=== PATIENT | male | born 1950 | race Hispanic/Latino ===

== ENCOUNTER 2021-07-16 16:29 | Emergency (ER) | payer OTHER ==
--- NOTE | 2021-07-16 17:01 | RAD REPORT ---
EXAM DESCRIPTION: CT - Head C Spine Mpr Wo Con - 07/16/2021 4:40 pm CLINICAL HISTORY: Head and neck injury status post fall. Head and neck pain COMPARISON: 2013 TECHNIQUE: Computed axial tomography of the head and cervical spine was obtained. Sagittal and coronal reconstruction was performed. All CT scans are performed using dose optimization technique as appropriate and may include automated exposure control or mA/KV adjustment according to patient size. FINDINGS: An intracranial bleed is not seen. Globes are calcified. Prominent cerebral atrophy. Mild low-density areas within periventricular deep and subcortical white matter likely ischemic changes secondary to small vessel disease. The ventricles are normal in caliber. An extra-axial fluid collection is not noted.Fluid within the v isualized sinuses and mastoids is not seen A cervical fracture is not visualized. No dislocation is noted. IMPRESSION: No acute intracranial abnormality is seen. A cervical fracture is not visualized. If the patient continues to have symptoms to suggest intracra nial /spinal cord pathology then MRI would be recommended
[2021-07-16] MEDS ORDERED: LIDOCAINE 1% W/EPI 1:100,000 MDV 20 ML VIAL ONE (17:05)
[2021-07-16] MEDS ORDERED: ACETAMINOPHEN 325 MG TABLET ONE (17:20)
--- NOTE | 2021-07-16 18:20 | RAD REPORT ---
EXAM DESCRIPTION: RAD - Knee Right 3 View - 07/16/2021 4:59 pm CLINICAL HISTORY: Right knee pain status post injury FINDINGS: No fracture or dislocation is seen.
--- NOTE | 2021-07-16 18:35 | RAD REPORT ---
EXAM DESCRIPTION: RAD - Pelvis - 07/16/2021 4:59 pm CLINICAL HISTORY: Pelvic pain status post injury FINDINGS: The bones are osteoporotic. Cortical regularity involves the junction of the right femoral head and neck. I suspect this is not s ignificant. However, if the patient does have pain in this region then dedicated plain films of the r ight hip would be recommended No dislocation
--- NOTE | 2021-07-16 19:28 | RAD REPORT ---
EXAM DESCRIPTION: CT - Pelvis Wo Cont - 07/16/2021 7:09 pm CLINICAL HISTORY: Pelvic pain status post fall TECHNIQUE: Computed axial tomography of the pelvis was obtained. Coronal and sagittal reconstruction performed All CT scans are performed using dose optimization technique as appropriate and may include automated exposure control or mA/KV adjustment according to patient size. FINDINGS: The bones are osteoporotic. No fracture or dislocation is seen. Small hip joint effusions Fluid collection within the iliopsoas bilaterally. IMPRESSION: No fracture seen. If patient continues have symptoms to suggest an occult fracture MRI would be recommended Fluid collection within the iliopsoas bilaterally. Most likely this represents bursitis. Less likely abscess
--- NOTE | 2021-07-16 19:54 | ER ---
Nurse's Notes [facility] Name: Daryl Rojas Age: 71 yrs Sex: Male : 1950 Arrival Date: 07/16/2021 Time: 16:30 Bed 30 Private MD: Diagnosis: Unspecified injury of head, initial encounter;Facial Laceration;Abrasion, right knee Presentation: 07/16 16:33 Chief complaint: EMS states: "pt was sleeping in bed when he rolled out and hit his jd3 head. denies LOC. 1.5 cm laceration noted next to the left eye. pt is reported to be on blood thinners.". Coronavirus screen: At this time, the client does not indicate any symptoms associated with coronavirus-19. Ebola Screen: Patient negative for fever greater than or equal to 101.5 degrees Fahrenheit, and additional compatible Ebola Virus Disease symptoms. Initial Sepsis Screen: Does the patient meet any 2 criteria? No. Patient's initial sepsis screen is negative. Does the patient have a suspected source of infection? No. Patient's initial sepsis screen is negative. Risk Assessment: Do you want to hurt yourself or someone else? Patient reports no desire to harm self or others. Onset of symptoms was July 16, 2021. Transition of care: patient was received from another setting of care (long-term care facility), [facility]. 16:33 Method Of Arrival: EMS: [facility] jd3 16:33 Acuity: AARON 3 jd3 16:41 Care prior to arrival: None. Mechanism of Injury: Fall out of bed. Trauma event jd3 details: Injury occurred in the [facility], Injury occurred: in an institution. Injury occurred: July 16, 2021. Trauma Activation: Alert Physician: ED Physician; Name: Romaine GARCIA; Notified At: 16:40; Arrived At: 16:40 Physician: General Surgeon; Name: ; Notified At: 16:40; Arrived At: Physician: Radiology; Name: CT and Xray techs; Notified At: 16:40; Arrived At: 16:40 Physician: Respiratory; Name: ; Notified At: 16:40; Arrived At: Physician: Tato; Name: ; Notified At: 16:40; Arrived At: Historical: - Allergies: 16:38 No Known Allergies; vg1 - Home Meds: 16:38 ascorbic acid oral [Active]; Aspirin EC Oral [Active]; atorvastatin oral [Active]; vg1 carvedilol oral [Active]; Dextran [Active]; Famotidine Oral [Active]; Fluoxetine Oral [Active]; Furosemide Oral [Active]; gabapentin oral [Active]; Insulin Detemir [Active]; nitroglycerin Oral [Active]; Plavix Oral [Active]; sevelamer carbonate oral [Active]; Tramadol Oral [Active]; - Immunization history:: Adult Immunizations up to date. - Social history:: Smoking status: unknown. - Immunization history: Last tetanus immunization: unknown. Screenin:51 Abuse screen: Denies threats or abuse. Nutritional screening: No deficits noted. jd3 Tuberculosis screening: No symptoms or risk factors identified. 16:51 Fall Risk Fall in past 12 months (25 points). Ambulatory Aid- Crutches/Cane/Walker (15 jd3 pts). Mental Status- Oriented to own ability (0 pts). Total Grace Fall Scale indicates Low Risk Score (25-44 pts). Fall prevention measures have been instituted. Side Rails Up X 2 Placed close to Nursing Station Frequent Obs/Assesments occuring. Primary Survey: 16:47 NO uncontrolled hemorrhage observed. A: The patient is alert. Airway: patent, No jd3 supplemental oxygen in use on arrival. Oral cavity: clear, Trachea midline. Breathing/Chest: Respiratory pattern: regular, Respiratory effort: spontaneous, unlabored, Chest inspection: symmetrical rise and fall of the chest. Circulation: Pulses: palpable right radial artery, right dorsalis pedis artery, left radial artery and left dorsalis pedis artery. Skin color: pink, Skin temperature: warm. Disability Alert. Exposure/Environment: All clothing and personal items were removed. Forensic evidence collection is not deemed to be indicated at this time. Items placed in patient belonging bag. There is no evidence of uncontrolled external bleeding. Obvious injury(ies) are noted at this time: small laceration noted to left worship area. small skin tear noted to the right knee. A warming method has been applied: A warm blanket has been provided to the patient. 17:31 Reassessment Airway Airway Patent Breathing/Chest Respiratory pattern Regular jd3 Respiratory effort Spontaneous Unlabored Breath sounds Clear Chest inspection Symmetrical Circulation Heart tones Present Pulses Palpable Color Hodges Temperature Warm Disability Alert. Secondary Survey: 16:47 HEENT: No deficits noted. Gastrointestinal: No deficits noted. : No signs and/or jd3 symptoms were reported regarding the genitourinary system. Musculoskeletal: Circulation, motion, and sensation intact. Range of motion: intact in all extremities. Assessment: 16:43 General: Appears in no apparent distress. comfortable, Behavior is calm, cooperative, jd3 appropriate for age. Pain: Complains of pain in left worship, back of neck and posterior chest Quality of pain is described as aching, pressure. Neuro: Level of Consciousness is awake, alert, obeys commands, Oriented to person, place, situation, Reports blind. EENT: No signs and/or symptoms were reported regarding the EENT system. Cardiovascular: Denies chest pain, Capillary refill < 3 seconds Patient's skin is warm and dry. Respiratory: Airway is patent Respiratory effort is even, unlabored, Respiratory pattern is regular, symmetrical, Denies cough, shortness of breath. GI: No signs and/or symptoms were reported involving the gastrointestinal system. : No signs and/or symptoms were reported regarding the genitourinary system. Derm: Skin is intact, Skin is dry, Skin is normal, Skin temperature is warm Bruising that is on left worship small 1.5 cm laceration noted to the left worship area. bleeding controlled. small skin tear noted to right knee. Musculoskeletal: Circulation, motion, and sensation intact. Range of motion: intact in all extremities. 17:27 Reassessment: Patient appears in no apparent distress at this time. Patient and/or jd3 family updated on plan of care and expected duration. Pain level reassessed. Patient is alert, oriented x 3, equal unlabored respirations, skin warm/dry/pink. 18:44 Reassessment: Patient appears in no apparent distress at this time. Patient and/or jd3 family updated on plan of care and expected duration. Pain level reassessed. Patient is alert, oriented x 3, equal unlabored respirations, skin warm/dry/pink. resting in bed with eyes closed, even and unlabored respirations. reports still feeling sore after Tylenol, provider notified. awaiting X-ray results and disposition. Vital Signs: 16:39 BP 142 / 85; Pulse 66; Resp 17 S; Temp 97.6(O); Pulse Ox 98% on R/A; Weight 77.11 kg jd3 (R); Height 5 ft. 9 in. (175.26 cm) (R); Pain 2/10; 17:30 BP 158 / 88; Pulse 61; Resp 18 S; Pulse Ox 99% on R/A; jd3 18:44 BP 176 / 92; Pulse 65; Resp 15 S; Pulse Ox 99% on R/A; jd3 16:39 Body Mass Index 25.10 (77.11 kg, 175.26 cm) jd3 Pineda Coma Score: 16:47 Eye Response: spontaneous(4). Verbal Response: oriented(5). Motor Response: obeys jd3 commands(6). Total: 15. 17:30 Eye Response: spontaneous(4). Verbal Response: oriented(5). Motor Response: obeys jd3 commands(6). Total: 15. Trauma Score (Adult): 16:47 Eye Response: spontaneous(1); Verbal Response: oriented(1); Motor Response: obeys jd3 commands(2); Systolic BP: > 89 mm Hg(4); Respiratory Rate: 10 to 29 per min(4); Pineda Score: 15; Trauma Score: 12 17:30 Eye Response: spontaneous(1); Verbal Response: oriented(1); Motor Response: obeys jd3 commands(2); Systolic BP: > 89 mm Hg(4); Respiratory Rate: 10 to 29 per min(4); Mingus Score: 15; Trauma Score: 12 ED Course: 16:30 Patient arrived in ED. ds1 16:30 Romaine Fajardo PA is PHCP. jmm 16:30 Cindy Mathis MD is Attending Physician. jmm 16:33 Red Buck RN is Primary Nurse. jd3 16:39 Triage completed. jd3 16:39 CT Head C Spine In Process Unspecified. EDMS 16:41 Arm band placed on. jd3 16:51 Patient has correct armband on for positive identification. Placed in gown. Bed in low jd3 position. Call light in reach. Side rails up X2. Pulse ox on. NIBP on. 16:51 Patient maintains SpO2 saturation greater than 95% on room air. Thermoregulation: warm jd3 blanket given to patient. 16:59 Knee Right 3 View In Process Unspecified. EDMS 16:59 Pelvis XRAY In Process Unspecified. EDMS 17:26 Assist provider with laceration repair on left worship that was 2.5 cm. or less using jd3 sutures. Set up tray. Performed by Romaine GARCIA Patient tolerated well. 19:09 CT Pelvis wo Cont In Process Unspecified. EDMS 19:21 Primary Nurse role handed off by Red Buck RN tt3 20:18 Knee Right 3 View XRAY Sent. dc2 20:42 Pepe Malhotra, RN is Primary Nurse. mr2 Administered Medications: 17:14 Drug: Lidocaine-Epinephrine -1%: (1:100,000) 20 ml {Note: given by provider at jd3 bedside..} Volume: 20 ml; Route: Infiltration; 18:04 Follow up: Response: No adverse reaction jd3 17:26 Drug: Tylenol 650 mg Route: PO; jd3 18:03 Follow up: Response: No adverse reaction jd3 Outcome: 19:54 Discharge ordered by MD. [facility] 20:51 Patient left the ED. tt3 Signatures: Dispatcher [employer] EDSC Romaine Fajardo PA PA jmm Sanford, Demi ds1 Red Buck RN RN jd3 Garcia, Victoria, RN RN vg1 Ad Pruitt tt3 Pepe Malhotra RN RN mr2 Bryanna Souza RN RN dc2 Corrections: (The following items were deleted from the chart) 18:44 18:44 Reassessment: Patient appears in no apparent distress at this time. Patient jd3 and/or family updated on plan of care and expected duration. Pain level reassessed. Patient is alert, oriented x 3, equal unlabored respirations, skin warm/dry/pink. resting in bed with eyes closed, even and unlabored respirations. reports still feeling sore after Tylenol, provider notified. Patient states feeling better. jd3 18:46 18:44 Reassessment: Patient appears in no apparent distress at this time. Patient jd3 and/or family updated on plan of care and expected duration. Pain level reassessed. Patient is alert, oriented x 3, equal unlabored respirations, skin warm/dry/pink. resting in bed with eyes closed, even and unlabored respirations. reports still feeling sore after Tylenol, provider notified. jd3
--- NOTE | 2021-07-16 19:55 | EDPHYS ---
Physician Documentation [facility] Name: Daryl Rojas Age: 71 yrs Sex: Male : 1950 Arrival Date: 07/16/2021 Time: 16:30 Bed 30 Private MD: ED Physician Cindy Mathis HPI: 07/16 16:31 This 71 yrs old Male presents to ER via EMS with complaints of Fall Injury. [facility] 16:31 Details of fall: The patient fell from a height, off furniture, approximately 2 feet. jmm Onset: The symptoms/episode began/occurred acutely, just prior to arrival. Associated injuries: The patient sustained injury to the head. This is a 71-year-old male the presents emerged department after a mechanical fall after falling out of his bed. Denies LOC, vomiting, behavior change. Patient also complains of neck pain. Denies chest pain or abdominal pain or lower back pain.. Historical: - Allergies: 16:38 No Known Allergies; vg1 - Home Meds: 16:38 ascorbic acid oral [Active]; Aspirin EC Oral [Active]; atorvastatin oral [Active]; vg1 carvedilol oral [Active]; Dextran [Active]; Famotidine Oral [Active]; Fluoxetine Oral [Active]; Furosemide Oral [Active]; gabapentin oral [Active]; Insulin Detemir [Active]; nitroglycerin Oral [Active]; Plavix Oral [Active]; sevelamer carbonate oral [Active]; Tramadol Oral [Active]; - Immunization history:: Adult Immunizations up to date. - Social history:: Smoking status: unknown. - Immunization history: Last tetanus immunization: unknown. ROS: 16:31 Constitutional: Negative for fever, chills, and weight loss. jmm 16:31 Cardiovascular: Negative for chest pain, palpitations, and edema, Respiratory: Negative for shortness of breath, cough, wheezing, and pleuritic chest pain, Abdomen/GI: Negative for abdominal pain, nausea, vomiting, diarrhea, and constipation, Back: Negative for injury and pain, Neuro: Negative for headache, weakness, numbness, tingling, and seizure. 16:31 Neck: Positive for pain with movement. 16:31 MS/extremity: Positive for pain. 16:31 All other systems are negative. Exam: 16:31 Constitutional: This is a well developed, well nourished patient who is awake, alert, jmm and in no acute distress. 16:31 Eyes: EOMI, no conjunctival erythema appreciated ENT: Moist Mucus Membranes 16:31 Chest/axilla: Normal chest wall appearance and motion. Cardiovascular: Regular rate and rhythm. No edema appreciated Respiratory: Normal respirations, no respiratory distress appreciated Abdomen/GI: Non distended, soft 16:31 Neuro: Awake and alert, normal gait Psych: Behavior is normal, Mood is normal, Patient is cooperative and pleasant 16:31 Head/face: 1.5 similar laceration noted to the left eyebrow, mild ecchymosis noted. 16:31 Neck: ROM/movement: pain, that is mild, with any movement. 16:31 Musculoskeletal/extremity: ROM: intact in all extremities, Abrasion noted to the right anterior knee, mild tenderness to palpation, compartments are soft, full dorsalis pulse, neurovascular intact. 16:31 Skin: Appearance: Color: normal in color, 1.5 cm laceration noted to the left eyebrow. Vital Signs: 16:39 BP 142 / 85; Pulse 66; Resp 17 S; Temp 97.6(O); Pulse Ox 98% on R/A; Weight 77.11 kg jd3 (R); Height 5 ft. 9 in. (175.26 cm) (R); Pain 2/10; 17:30 BP 158 / 88; Pulse 61; Resp 18 S; Pulse Ox 99% on R/A; jd3 18:44 BP 176 / 92; Pulse 65; Resp 15 S; Pulse Ox 99% on R/A; jd3 16:39 Body Mass Index 25.10 (77.11 kg, 175.26 cm) jd3 Hartly Coma Score: 16:47 Eye Response: spontaneous(4). Verbal Response: oriented(5). Motor Response: obeys jd3 commands(6). Total: 15. 17:30 Eye Response: spontaneous(4). Verbal Response: oriented(5). Motor Response: obeys jd3 commands(6). Total: 15. Trauma Score (Adult): 16:47 Eye Response: spontaneous(1); Verbal Response: oriented(1); Motor Response: obeys jd3 commands(2); Systolic BP: > 89 mm Hg(4); Respiratory Rate: 10 to 29 per min(4); Hartly Score: 15; Trauma Score: 12 17:30 Eye Response: spontaneous(1); Verbal Response: oriented(1); Motor Response: obeys jd3 commands(2); Systolic BP: > 89 mm Hg(4); Respiratory Rate: 10 to 29 per min(4); Hartly Score: 15; Trauma Score: 12 Laceration: 17:24 Wound Repair of 1.5cm ( 0.6in ) subcutaneous laceration to outer aspect of left [facility] eyebrow. Distal neuro/vascular/tendon intact. Anesthesia: Local anesthetic administered with 1 mls of 1% lidocaine w/ Epi. Wound prep: Simple cleansing with betadine. Skin closed with 3 5-0 Prolene using simple sutures and sterile technique. Patient tolerated well. MDM: 16:31 Patient medically screened. [facility] 19:53 Data reviewed: vital signs, nurses notes. Counseling: I had a detailed discussion with [facility] the patient and/or guardian regarding: the historical points, exam findings, and any diagnostic results supporting the discharge/admit diagnosis, radiology results, the need for outpatient follow up, to return to the emergency department if symptoms worsen or persist or if there are any questions or concerns that arise at home. 07/16 16:31 Order name: CT Head C Spine; Complete Time: 17:02 [facility] 07/16 16:32 Order name: Knee Right 3 View XRAY [facility] 07/16 16:32 Order name: Pelvis XRAY; Complete Time: 18:42 [facility] 07/16 16:32 Order name: Knee Right 3 View; Complete Time: 18:23 [facility] 07/16 18:42 Order name: CT Pelvis wo Cont; Complete Time: 19:30 [facility] Administered Medications: 17:14 Drug: Lidocaine-Epinephrine -1%: (1:100,000) 20 ml {Note: given by provider at [facility] bedside..} Volume: 20 ml; Route: Infiltration; 18:04 Follow up: Response: No adverse reaction jd3 17:26 Drug: Tylenol 650 mg Route: PO; jd3 18:03 Follow up: Response: No adverse reaction d3 Disposition Summary: 07/16/21 19:54 Discharge Ordered Location: Home [facility] Condition: Stable [facility] Diagnosis - Unspecified injury of head, initial encounter [facility] - Facial Laceration [facility] - Abrasion, right knee [facility] Followup: [facility] - With: Private Physician - When: 1 week - Reason: Recheck today's complaints, Continuance of care, Staple/Suture removal, Re-evaluation by your physician Discharge Instructions: - Head Injury, Adult [facility] - Facial Laceration [facility] - Discharge Summary Sheet jd3 Forms: - Medication Reconciliation Form [facility] - Thank You Letter [facility] - Antibiotic Education [facility] - Prescription Opioid Use [facility] Addendum: 07/18/2021 08:39 Co-signature as Attending Physician, Cindy Mathis MD I agree with the assessment and s p3 plan of care. Signatures: Dispatcher [employer] EDMS Romaine Fajardo PA PA jmm Davies, Jonathon, RN RN jd3 Trice Machado RN RN vg1 Cindy Mathis MD MD sp3
[2021-07-16 20:59] VITALS: O2SAT 99
[2021-07-16 21:00] VITALS: TEMP 97.6
[2021-07-16 21:02] VITALS: BP 176/92
== END 2021-07-16 20:51 | disposition home or self-care (01) ==
LOC: ER 16:29
PROC: 0JQ10ZZ Repair Face Subcutaneous Tissue and Fascia, Open Approach (ICD-10-PCS; principal; 2021-07-16)
DX: S01.112A Laceration without foreign body of left eyelid and periocular area, initial encounter (principal); S80.211A Abrasion, right knee, initial encounter; W08.XXXA Fall from other furniture, initial encounter; Y92.009 Unspecified place in unspecified non-institutional (private) residence as the place of occurrence of the external cause
CPT/HCPCS: 70450; 72125; 72170; 72192; 99284

== ENCOUNTER 2021-07-24 17:25 | Inpatient (IN) | payer OTHER ==
--- NOTE | 2021-07-24 19:07 | RAD REPORT ---
EXAM DESCRIPTION: CT - Head Brain Wo Cont - 07/24/2021 6:53 pm CLINICAL HISTORY: SEIZURE COMPARISON: HEAD BRAIN W O CONTRAST dated 10/06/2014 TECHNIQUE: Axial 5 mm thick images of the head were obtained without IV contrast. All CT scans are performed using dose optimization technique as appropriate and may include automated exposure control or mA/KV adjustment according to patient size. FINDINGS: No intracranial hemorrhage, mass, edema or shift of mid-line structures. No acute cortical based infarction. Cortical edema or sulcal effacement. No abnormal extra-axial fluid collections. Pr ominent atrophy changes are present with ventricles in proportion. Chronic ischemic changes are seen in the cerebral white matter. Dense arterial tree calcifications are present. Intracranial findings m atch the 2015 study. Mastoid air cells and visualized portions of the paranasal sinuses are clear. No acute bony findings. Irregular contour and partial calcification of the bilateral globes matching old study. IMPRESSION: Negative non-contrast CT head examination for acute finding. Patient has advanced atrophy and chronic ischemic changes matching comparison.
--- NOTE | 2021-07-24 19:10 | RAD REPORT ---
EXAM DESCRIPTION: RAD - Chest Single View - 07/24/2021 6:31 pm CLINICAL HISTORY: seizure COMPARISON: Portable October 2014 TECHNIQUE: AP portable chest image was obtained 07/24/2021 6:31 pm . FINDINGS: Lung volumes are very low accentuating the interstitial markings. Mild interstitial edema or infiltrate could be masked. No dense mass or consolidation. Mild failure could be masked. Heart size not outside of normal range for limited portable imaging. No measurable pleural effusion and no pneumothorax. No acute bony abnormality seen. No acute aortic findings suspected. IMPRESSION: Limited portable exam shows no peripheral mass, consolidation or significant failure. Prominent interstitial markings due to low lung volumes could mask early edema or infiltrate.
[2021-07-24 19:25] LABS: Protime INR 1.03
[2021-07-24 19:29] LABS: Basophils % 0.4 % (0-1.3); Hematocrit 36.6 % (39.6-49.0); Lymphocytes % 14.8 % (15.3-44.8); MPV 7.3 fL (7.6-11.3); RBC Red Blood Cell Count 3.86 M/uL (4.33-5.43)
[2021-07-24 19:41] LABS: Albumin 3.6 g/dL (3.4-5.0); Bilirubin Direct 0.1 mg/dL (0-0.2); Bilirubin Total 0.3 mg/dL (0.2-1.0); Magnesium 2.6 mg/dL (1.8-2.4); Protein, Total 7.7 g/dL (6.4-8.2); Troponin (Emerg Dept Use Only) 0.02 ng/mL (0.0-0.045)
[2021-07-24 21:04] LABS: Urine Blood 3+ (Negative); Urine Glucose Negative (Negative); Urine Protein 3+ (Negative)
[2021-07-24 21:37] LABS: Urine Bacteria <20 /HPF (NONE SEEN); Urine RBC >50 /HPF (NONE SEEN)
[2021-07-24 21:39] LABS: Urine Sperm PRESENT (NONE SEEN)
--- NOTE | 2021-07-24 22:10 | EDPHYS ---
Physician Documentation [facility] Name: Daryl Rojas Age: 71 yrs Sex: Male : 1950 Arrival Date: 07/24/2021 Time: 17:25 Bed 30 Private MD: ED Physician Robert Wright HPI: 07/24 17:53 This 71 yrs old Male presents to ER via EMS with complaints of Twitching. pm1 17:53 The patient's problem is reported as Onset of twitching while having dialysis. Patient pm1 with 1.5 L removed when twitching started. Onset: The symptoms/episode began/occurred just prior to arrival. Context: occurred Dialysis center, occurred while the patient was Receiving dialysis. Possible contributing factors include: Unknown. The symptoms are alleviated by nothing. The symptoms are aggravated by nothing. Associated signs and symptoms: The patient has no apparent associated signs or symptoms. Severity of symptoms: in the emergency department the symptoms are unchanged Pain is currently a 0 / 10. The patient has experienced similar episodes in the past, several times. Patient denies any pain or complaints. Patient does not even realize that he is experiencing twitching. Historical: - Allergies: 17:35 No Known Allergies; jl7 - Home Meds: 17:35 Iopidine 0.5 % ophthalmic (eye) drop 1 drop 3 times per day [Active]; Aspirin EC Oral jl7 [Active]; lactulose 10 gram/15 mL (15 mL) Oral soln 15 mL once daily [Active]; atorvastatin 40 mg oral tab once daily [Active]; furosemide 40 mg oral tab once daily [Active]; Plavix 75 mg oral tab once daily [Active]; Mobic 7.5 mg oral tab 1 tab once daily [Active]; carvedilol 12.5 mg oral tab 2 times per day [Active]; Fluoxetine Oral [Active]; Famotidine Oral [Active]; gabapentin Oral [Active]; sevelamer carbonate Oral [Active]; Humalog Sub-Q [Active]; - PMHx: 17:35 End stage renal disease; Dialysis, M-W-F; Diabetes mellitus; jl7 - Immunization history:: Adult Immunizations unknown. - Social history:: Smoking status: unknown. ROS: 17:53 Constitutional: Negative for fever, chills, and weight loss, Eyes: Negative for injury, pm1 pain, redness, and discharge, Cardiovascular: Negative for chest pain, palpitations, and edema, Respiratory: Negative for shortness of breath, cough, wheezing, and pleuritic chest pain, Abdomen/GI: Negative for abdominal pain, nausea, vomiting, diarrhea, and constipation, MS/Extremity: Negative for injury and deformity, Skin: Negative for injury, rash, and discoloration. 17:53 Neuro: Positive for twitching, Negative for headache, weakness. 17:53 All other systems are negative. Exam: 17:53 Constitutional: This is a well developed, well nourished patient who is awake, alert, pm1 and in no acute distress. 17:53 Skin: Warm, dry with normal turgor. Normal color with no rashes, no lesions, and no evidence of cellulitis. MS/ Extremity: Pulses equal, no cyanosis. Neurovascular intact. Full, normal range of motion. 17:53 Eyes: Exam is negative for acute findings. Patient is blind. 17:53 Cardiovascular: Exam negative for acute changes, Rate: normal, Rhythm: regular, Pulses: no pulse deficits are appreciated, Heart sounds: normal, normal S1and S2. 17:53 Respiratory: Exam negative for acute changes, respiratory distress, shortness of breath, Breath sounds: are clear throughout. 17:53 Abdomen/GI: Exam negative for acute changes, Inspection: abdomen appears normal, Palpation: abdomen is soft and non-tender, in all quadrants. 17:53 Neuro: Exam negative for acute changes, Orientation: is normal, Motor: moves all fours. 07/25 01:39 Radiologist reports: No acute findings pm1 Vital Signs: 07/24 17:28 BP 151 / 79; Pulse 70; Resp 15; Temp 97.5; Pulse Ox 100% ; Pain 0/10; jl7 18:15 BP 155 / 97; Pulse 71; Resp 15; Pulse Ox 100% ; jl7 19:52 BP 148 / 87; Pulse 71; Resp 20; Pulse Ox 100% on R/A; oe 20:55 BP 146 / 84; Pulse 74; Resp 16; Pulse Ox 96% on R/A; tw5 21:18 BP 123 / 71; Pulse 76; Resp 20; Pulse Ox 99% ; tw5 07/25 00:38 Weight 74.48 kg (M); tw5 MDM: 07/24 17:42 Patient medically screened. pm1 22:06 Data reviewed: vital signs. Data interpreted: Pulse oximetry: on room air is 99 %. pm1 Interpretation: normal. Counseling: I had a detailed discussion with the patient and/or guardian regarding: the historical points, exam findings, and any diagnostic results supporting the discharge/admit diagnosis, lab results, radiology results, the need for further work-up and treatment in the hospital. 07/24 17:46 Order name: Basic Metabolic Panel; Complete Time: 21:54 pm1 07/24 17:46 Order name: CBC with Diff; Complete Time: 21:54 pm1 07/24 17:46 Order name: LFT's; Complete Time: 21:54 pm1 07/24 17:46 Order name: Magnesium; Complete Time: 21:54 pm1 07/24 17:46 Order name: NT PRO-BNP; Complete Time: 21:54 pm1 07/24 17:46 Order name: PT-INR; Complete Time: 19:33 pm1 07/24 17:46 Order name: Troponin (emerg Dept Use Only); Complete Time: 21:54 pm1 07/24 17:54 Order name: Procalcitonin; Complete Time: 21:54 pm1 07/24 17:54 Order name: Lactate; Complete Time: 19:33 pm1 07/24 17:54 Order name: Blood Culture Adult (2) pm1 07/24 17:54 Order name: Urine Microscopic Only; Complete Time: 21:54 pm1 07/24 21:04 Order name: Urine Dipstick-Ancillary; Complete Time: 21:54 EDMS 07/24 21:12 Order name: COVID-19 (Coronavirus) Document "Date of Onset" if Symptomatic em 07/24 21:27 Order name: SARS-COV-2 RT PCR; Complete Time: 00:10 EDMS 07/24 21:39 Order name: Urine Culture EDMS 07/25 04:21 Order name: CBC with Automated Diff EDMS 07/25 05:04 Order name: Hemoglobin A1c EDMS 07/25 05:14 Order name: Comprehensive Metabolic Panel EDMS 07/25 05:14 Order name: Phosphorus EDMS 07/25 05:14 Order name: Lipid Profile EDMS 07/25 05:14 Order name: T4 Free EDMS 07/25 05:14 Order name: Magnesium EDMS 07/25 05:14 Order name: Thyroid Stimulating Hormone EDCT 07/25 08:19 Order name: Glucose, Ancillary Testing EDCT 07/25 12:06 Order name: Glucose, Ancillary Testing EDCT 07/25 16:46 Order name: Glucose, Ancillary Testing EDCT 07/25 17:17 Order name: Glucose, Ancillary Testing EDCT 07/25 18:41 Order name: Glucose, Ancillary Testing EDCT 07/25 20:05 Order name: Glucose, Ancillary Testing [facility] 07/24 17:46 Order name: CT Head Brain wo Cont; Complete Time: 19:22 pm1 07/24 17:46 Order name: XRAY Chest (1 view); Complete Time: 19:22 pm1 07/24 17:46 Order name: EKG; Complete Time: 17:47 pm1 07/24 17:46 Order name: Cardiac monitoring; Complete Time: 19:09 pm1 07/24 17:46 Order name: EKG - Nurse/Tech; Complete Time: 19:09 pm1 07/24 17:46 Order name: IV Saline Lock; Complete Time: 19:09 pm1 07/24 17:46 Order name: Labs collected and sent; Complete Time: 19:09 pm1 07/24 17:46 Order name: O2 Per Protocol; Complete Time: 19:09 pm1 07/24 17:46 Order name: O2 Sat Monitoring; Complete Time: 19:09 pm1 07/24 17:54 Order name: Urine Dipstick-Ancillary (obtain specimen); Complete Time: 20:57 pm1 07/24 17:54 Order name: Straight Cath - Urine; Complete Time: 20:56 pm1 07/25 16:05 Order name: MRI EDCT Administered Medications: 23:30 Drug: Rocephin (cefTRIAXone) 1 grams Route: IV; Rate: calculated rate; Site: right bs2 forearm; Disposition: 07/25 07:06 Co-signature as Attending Physician, Robert Wright MD I agree with the assessment and rn plan of care. Attestation: The patient's history, exam findings, diagnostics, and a summary of any interventions or procedures was reviewed in detail with Eros Kellogg NP. Disposition Summary: 07/24/21 22:09 Hospitalization Ordered Hospitalization Status: Observation pm1 Condition: Stable pm1 Problem: new pm1 Symptoms: have improved pm1 Bed/Room Type: Standard pm1 Provider: Siddharth Umana(07/25/21 00:02) pm1 Location: Telemetry/MedSurg (observation)(07/25/21 19:15) cg Room Assignment: [facility](07/25/21 20:23) cg Diagnosis - UTI/ Urinary tract infection, site not specified pm1 - End stage renal disease pm1 - Unspecified abnormal involuntary movements - twitching pm1 Forms: - Medication Reconciliation Form pm1 - SBAR form pm1 Signatures: Dispatcher [employer] EDMS Robert Wright MD MD rn Garcia, Cindy, RN RN cg Eros Kellogg, WINDOWS SERVER SPECIALIST WINDOWS SERVER SPECIALIST pm1 David Monson RN RN jl7 Cori Radford RN RN bs2 Corrections: (The following items were deleted from the chart) 07/24 17:46 17:35 PMHx: Kidney disease; cresencio jl7 21:27 21:13 CORONAVIRUS ordered. EDCT EDCT 22:57 22:09 Telemetry/MedSurg (observation) pm1 cg 22:57 22:09 pm1 cg 07/25 00:02 07/24 22:09 Luis Cochran pm1 pm1 07/25 19:15 07/24 22:57 [facility] ER HOLD cg cg 07/25 19:15 07/24 22:57 ERHOLD- cg cg 07/25 20:23 19:15 422 cg cg
--- NOTE | 2021-07-24 22:10 | ER ---
Nurse's Notes [facility] Name: Daryl Rojas Age: 71 yrs Sex: Male : 1950 Arrival Date: 07/24/2021 Time: 17:25 Bed 30 Private MD: Diagnosis: UTI/ Urinary tract infection, site not specified;End stage renal disease;Unspecified abnormal involuntary movements-twitching Presentation: 07/24 17:28 Chief complaint: EMS states: Toned out to [facility], pt had 1.5 L off and began jl7 "twitching", pt denies pain. Coronavirus screen: At this time, the client does not indicate any symptoms associated with coronavirus-19. Ebola Screen: No symptoms or risks identified at this time. Initial Sepsis Screen: Does the patient meet any 2 criteria? No. Patient's initial sepsis screen is negative. Does the patient have a suspected source of infection? No. Patient's initial sepsis screen is negative. Risk Assessment: Do you want to hurt yourself or someone else? Patient reports no desire to harm self or others. Onset of symptoms was July 24, 2021. Care prior to arrival: IV initiated. 20 GA, in the right forearm, Glucose check: 87. 17:28 Method Of Arrival: EMS: [facility] jl7 17:28 Acuity: AARON 3 jl7 Triage Assessment: 17:35 General: Appears in no apparent distress. uncomfortable, Behavior is calm, cooperative, jl7 appropriate for age. Pain: Denies pain. Neuro: Level of Consciousness is awake, alert, obeys commands, Oriented to person, place, time, situation. Cardiovascular: Patient's skin is warm and dry. Respiratory: Airway is patent Respiratory effort is even, unlabored, Respiratory pattern is regular, symmetrical. Derm: Skin is pink, warm \\T\\ dry. Historical: - Allergies: 17:35 No Known Allergies; jl7 - Home Meds: 17:35 Iopidine 0.5 % ophthalmic (eye) drop 1 drop 3 times per day [Active]; Aspirin EC Oral jl7 [Active]; lactulose 10 gram/15 mL (15 mL) Oral soln 15 mL once daily [Active]; atorvastatin 40 mg oral tab once daily [Active]; furosemide 40 mg oral tab once daily [Active]; Plavix 75 mg oral tab once daily [Active]; Mobic 7.5 mg oral tab 1 tab once daily [Active]; carvedilol 12.5 mg oral tab 2 times per day [Active]; Fluoxetine Oral [Active]; Famotidine Oral [Active]; gabapentin Oral [Active]; sevelamer carbonate Oral [Active]; Humalog Sub-Q [Active]; - PMHx: 17:35 End stage renal disease; Dialysis, M-W-F; Diabetes mellitus; jl7 - Immunization history:: Adult Immunizations unknown. - Social history:: Smoking status: unknown. Screenin:15 Abuse screen: Denies threats or abuse. Denies injuries from another. Nutritional jl7 screening: No deficits noted. Tuberculosis screening: No symptoms or risk factors identified. Fall Risk No fall in past 12 months (0 pts). Secondary diagnosis (15 points) impaired mobility, IV access (20 points). Total Grace Fall Scale indicates High Risk Score (45 or more points). Fall prevention measures have been instituted. Side Rails Up X 2 1:1 Attendant Assigned Frequent Obs/Assessments Occuring As available patient and family educated on Fall Prevention Program and Strategies. Assessment: 17:35 General: See triage. jl7 18:35 Reassessment: Patient appears in no apparent distress at this time. No changes from jl7 previously documented assessment. Patient and/or family updated on plan of care and expected duration. Pain level reassessed. Patient is alert, oriented x 3, equal unlabored respirations, skin warm/dry/pink. 20:53 General: patient appears to be twitching. face, and body are affected. . tw5 Cardiovascular:. Respiratory: Airway is patent Trachea midline Respiratory effort is even, unlabored. : Urine is blood tinged. 21:18 Reassessment: No changes from previously documented assessment. tw5 Vital Signs: 17:28 BP 151 / 79; Pulse 70; Resp 15; Temp 97.5; Pulse Ox 100% ; Pain 0/10; jl7 18:15 BP 155 / 97; Pulse 71; Resp 15; Pulse Ox 100% ; jl7 19:52 BP 148 / 87; Pulse 71; Resp 20; Pulse Ox 100% on R/A; oe 20:55 BP 146 / 84; Pulse 74; Resp 16; Pulse Ox 96% on R/A; tw5 21:18 BP 123 / 71; Pulse 76; Resp 20; Pulse Ox 99% ; tw5 07/25 00:38 Weight 74.48 kg (M); tw5 ED Course: 07/24 17:25 Patient arrived in ED. jl7 17:35 Triage completed. jl7 17:35 Arm band placed on right wrist. jl7 17:35 Patient has correct armband on for positive identification. Placed in gown. Bed in low jl7 position. Call light in reach. Side rails up X2. interventional physiatrist on. Pulse ox on. NIBP on. 17:42 Eros Kellogg, FINISH MILL OPERATOR is PHCP. pm1 17:42 Robert Wright MD is Attending Physician. pm1 18:03 David Monson RN is Primary Nurse. jl7 18:31 XRAY Chest (1 view) In Process Unspecified. EDMS 18:45 EKG done, by ED staff, reviewed by Eros Kellogg NP. jl7 18:53 CT Head Brain wo Cont In Process Unspecified. EDMS 19:00 Initial lab(s) drawn, by mo, sent to lab. First set of blood cultures drawn by mo, jl Second set of blood cultures drawn by mo. Maintain EMS IV. Dressing intact. Good blood return noted. Site clean \\T\\ dry. Gauge \\T\\ site: 20 right forearm. 20:53 Placed in gown. patient repositioned in bed. Door closed. Noise minimized. Moved to [facility] private room. Warm blanket given. Verbal reassurance given. 20:53 Urine collected: straight cath specimen, blood tinged, Amount Returned: 10mL. tw5 20:57 Urine Microscopic Only Sent. tw5 21:18 COVID swab sent to lab. tw5 21:19 COVID-19 (Coronavirus) Document "Date of Onset" if Symptomatic Sent. tw5 21:19 Urine Microscopic Only Sent. tw5 21:19 Blood Culture Adult (2) Sent. tw5 22:09 Luis Cochran MD is Hospitalizing Provider. pm1 07/25 00:01 Hospitalizing Provider role handed off by Luis Cochran MD pm1 00:01 Siddharth Umana is Hospitalizing Provider. pm1 07:38 Primary Nurse role handed off by David Monson, KIMBER ll1 Administered Medications: 07/24 23:30 Drug: Rocephin (cefTRIAXone) 1 grams Route: IV; Rate: calculated rate; Site: right bs2 forearm; Outcome: 22:09 Decision to Hospitalize by Provider. pm1 07/25 20:30 Patient left the ED. bb Signatures: Dispatcher [employer] EDMS Kenia Rosas, RN RN bb Eros Kellogg, KERRIE FINISH MILL OPERATOR pm1 Vidal Garcia Jahala, RN RN jl7 Ishan Dodge RN RN 1 Cori Radford RN RN bs2 Nicky Rivera 5 Corrections: (The following items were deleted from the chart) 07/24 17:46 17:35 PMHx: Kidney disease; cresencio dupont 21:27 21:19 CORONAVIRUS drawn and sent. [facility] EDLA
[2021-07-24] MEDS ORDERED: CEFTRIAXONE 1000 MG/VIAL ONE (22:19)
--- NOTE | 2021-07-24 23:03 | P.HP ---
Certification for Inpatient Patient admitted to: Observation With expected LOS: <2 Midnights Patient will require the following post-hospital care: None Practitioner: I am a practitioner with admitting privileges, knowledge of patient current condition, hospital course, and medical plan of care. Services: Services provided to patient in accordance with Admission requirements found in Title 42 Section 412.3 of the Code of Federal Regulations Patient History Date of Service: 07/24/21 Reason for admission: UTI, twitching History of Present Illness: Mr. Rojas is a 71 yo male with DM and ESRD on HD MWF who presents with twitching beginning this afternoon. In the past, with the onset of twitching, he has been found to have sepsis. UA positive for RBCs, WBCs, and leukocyte esterase. Culture pending. He went to dialysis today and 1.5L removed, electrolytes within normal limits. He had a fall 1 week ago with bruising to left side of his face, CT head without acute findings. Procal 0.06. Allergies No Known Drug Allergies Allergy (Verified 03/23/15 13:12) Unknown Home Medications: Aspirin [Ecotrin 81 MG] 81 mg PO DAILY 12/22/13 Fluoxetine HCl [Prozac*] 40 mg PO DAILY 08/07/14 Lactulose 30 ml PO DAILY 08/07/14 diazePAM [Valium*] 1 tab PO PRN PRN 08/07/14 Acetaminophen [Tylenol*] 650 mg PO Q6HR PRN 02/17/15 Calcium Acetate [Phoslo] 2 cap PO TID 02/17/15 Clonidine HCl [Clonidine HCl ER] 0.1 mg PO BID 02/17/15 Gabapentin Enacarbil [Horizant] 300 mg PO TID 02/17/15 Insulin Lispro [Humalog] 10 units SQ BID 02/17/15 Sevelamer Carbonate [Renvela*] 3 tab PO TID* 02/17/15 Tramadol HCl [Ultram] 50 mg PO BID PRN 02/17/15 carvediloL [Coreg] 6.25 mg PO BID 02/17/15 Levofloxacin [Levaquin] 500 mg PO Q48H #5 tablet 03/23/15 - Past Medical/Surgical History Diabetic: Yes -: ESRD -: CAD -: Dialysis -: HD MWF -: depression -: hyperlipidemia -: Shunt L fa -: Cardiac cath w/stent placement - Family History Mother -: Cancer Notes: pt states that he is not sure - Social History Smoking Status: Unknown if ever smoked Alcohol use: No CD- Drugs: No Caffeine use: Yes Place of Residence: Home Review of Systems is unable to be obtained Physical Examination - Physical Exam General: Alert, In no apparent distress HEENT: Atraumatic, Mucous membr. moist/pink Neck: Supple, 2+ carotid pulse no bruit, No LAD, Without JVD or thyroid abnormality Respiratory: Clear to auscultation bilaterally, Normal air movement Cardiovascular: Regular rate/rhythm, Normal S1 S2 Gastrointestinal: Normal bowel sounds, No tenderness Musculoskeletal: No tenderness Integumentary: No rashes Neurological: Normal strength at 5/5 x4 extr, Normal tone, Abnormal speech, Abnormal affect Lymphatics: No axilla or inguinal lymphadenopathy - Studies Laboratory Data (last 24 hrs) 07/24/21 19:04: PT 11.9, INR 1.03 07/24/21 19:04: WBC 6.90, Hgb 12.0 L, Hct 36.6 L, Plt Count 185 07/24/21 19:04: Sodium 141, Potassium 4.0, BUN 27 H, Creatinine 5.58 H*, Glucose 56 L, Magnesium 2.6 H, Total Bilirubin 0.3, AST 16, ALT 24, Alkaline Phosphatase 68 Assessment and Plan - Problems (Diagnosis) (1) Twitching Current Visit: Yes Status: Acute (2) UTI (urinary tract infection) Current Visit: Yes Status: Acute Qualifiers: Urinary tract infection type: site unspecified Hematuria presence: with hematuria Qualified Code(s): N39.0 - Urinary tract infection, site not specified; R31.9 - Hematuria, unspecified (3) Anemia in chronic kidney disease Current Visit: No Status: Chronic Qualifiers: Chronic kidney disease stage: on chronic dialysis Qualified Code(s): N18.6 - End stage renal disease; D63.1 - Anemia in chronic kidney disease; Z99.2 - Dependence on renal dialysis (4) Blind Onset Date: 08/09/14 Current Visit: No Status: Chronic (5) Diabetes Onset Date: 08/09/14 Current Visit: No Status: Chronic Qualifiers: Diabetes mellitus type: type 2 Diabetes mellitus exterminator helper termite insulin use: unspecified nursing home insulin use status Diabetes mellitus complication status: with kidney complications Diabetes mellitus complication detail: with chronic kidney disease Chronic kidney disease stage: on chronic dialysis Qualified Code(s): E11.22 - Type 2 diabetes mellitus with diabetic chronic kidney disease; N18.6 - End stage renal disease; Z99.2 - Dependence on renal dialysis (6) ESRD (end stage renal disease) Onset Date: 08/09/14 Current Visit: No Status: Chronic (7) Hypertensive disorder, systemic arterial Onset Date: 08/09/14 Current Visit: No Status: Chronic - Plan ceftriaxone daily, blood cultures and urine culturesp ending sliding scale insulin and accuchecks reconcile and continue home medications will consult nephrology for dialysis if still here Saturday DVT ppx Discharge Plan: Home Plan to discharge in: 24 Hours - Advance Directives Does patient have a Living Will: No Does patient have a Durable POA for Healthcare: No - Code Status/Comfort Care Code Status Assessed: Yes (full code ) Critical Care: No Time Spent Managing Pts Care (In Minutes): 70
[2021-07-25] MEDS ORDERED: ACETAMINOPHEN 500 MG TAB PO PRN (01:38)
[2021-07-25] MEDS ORDERED: HYDRALAZINE HCL 20 MG/ML VIAL IV PRN (01:38)
[2021-07-25] MEDS ORDERED: ONDANSETRON 4 MG/2 ML VIAL IV PRN (01:38)
[2021-07-25] MEDS ORDERED: ALBUTEROL 2.5 MG/3 ML NEB SOL NEB PRN (01:38)
[2021-07-25 04:11] LABS: Absolute Lymphocytes (CBC) 0.9 K/uL (0.7-4.9); Basophils % 0.4 % (0-1.3); Hematocrit 35.4 % (39.6-49.0); MPV 7.4 fL (7.6-11.3)
[2021-07-25] MEDS ORDERED: HEPARIN 5000 UNIT/ML 1 ML VIAL ONE ×3 (05:09→16:55)
[2021-07-25 05:12] LABS: Albumin 3.2 g/dL (3.4-5.0); Bilirubin Total 0.3 mg/dL (0.2-1.0); Magnesium 2.4 mg/dL (1.8-2.4); Phosphorus 4.5 mg/dL (2.5-4.9); Potassium 4.6 mmol/L (3.5-5.1); Protein, Total 7.2 g/dL (6.4-8.2); Thyroid Stimulating Hormone 3.72 uIU/mL (0.360-3.740)
[2021-07-25] MEDS: HEPARIN 5000 UNIT/ML 1 ML VIAL SQ SCH ×3 (05:25→16:56)
[2021-07-25] MEDS: INSULIN -REGULAR HUMAN 50 UNIT/0.5 ML ML SQ SCH ×4 (07:30→20:56)
[2021-07-25] MEDS ORDERED: INSULIN -REGULAR HUMAN 50 UNIT/0.5 ML ML ONE (12:20)
[2021-07-25 13:35] VITALS: BMI 28.7
--- NOTE | 2021-07-25 14:11 | P.CNS ---
Date of Consult: 07/25/21 Reason for Consult: ESRD Requesting Physician: randell seaman Chief Complaint: UTI, myoclonic jerks History of Present Illness: 71M w/ PMHx of ESRD presumed to be 2/2 DM/Htn on HD MWF at [facility], EDW 77 kgs, HD access LFA AVF, DM2 w/ quadrupathy, Htn, anemia, & renal osteodystrophy, who p/w myoclonic jerks, also found to have pyuria. Started empirically on abx for UTI. He received dialysis yesterday at [facility]. He rep orts having a fall [address] unremarkable. Allergies No Known Drug Allergies Allergy (Verified 03/23/15 13:12) Unknown Home Medications: carvediloL [Coreg] 12.5 mg PO BID 02/17/15 Acetaminophen [Tylenol] 650 mg PO Q6H PRN 07/25/21 Ascorbic Acid [Vitamin C] 500 mg PO DAILY 07/25/21 Aspirin [Aspirin EC] 81 mg PO DAILY 07/25/21 Atorvastatin Calcium [Lipitor*] 20 mg PO DAILY 07/25/21 Bismuth Subsalicylate [Maalox] 15 ml PO BID PRN 07/25/21 Clopidogrel Bisulfate [Plavix*] 75 mg PO DAILY 07/25/21 Dextran 70/Hypromellose [Genteal Tears 0.1%-0.3% Drop] 2 drops EACH EYE Q6H PRN 07/25/21 Famotidine [Pepcid*] 20 mg PO DAILY 07/25/21 Fluoxetine HCl [Prozac] 20 mg PO DAILY 07/25/21 Furosemide [Lasix*] 40 mg PO DAILY 07/25/21 Gabapentin 300 mg PO TID 07/25/21 Insulin Detemir [Levemir Flextouch] 14 units SQ DAILY 07/25/21 Lactulose 30 ml PO DAILY PRN 07/25/21 Sevelamer Carbonate [Renvela*] 800 mg PO TID 07/25/21 traMADol HCL [Ultram*] 50 mg PO Q6H PRN 07/25/21 - Past Medical/Surgical History Diabetic: Yes -: ESRD -: CAD -: Dialysis -: HD MWF -: depression -: hyperlipidemia -: Shunt L fa -: Cardiac cath w/stent placement - Family History Mother Medical History: Cancer Notes: pt states that he is not sure - Social History Smoking Status: Unknown if ever smoked Alcohol use: No CD- Drugs: No Caffeine use: Yes Place of Residence: Home Review of Systems General: Weakness Eyes: Vision Change ENT: Unremarkable Respiratory: Unremarkable Cardiovascular: Unremarkable Gastrointestinal: Unremarkable Genitourinary: Unremarkable Musculoskeletal: Atrophy Integumentary: Other (Xerosis) Neurological: Other (Myoclonic jerks) Lymphatics: Unremarkable Other: Recent fall Physical Examination Temp Pulse Resp BP Pulse Ox 98.8 F 91 H 19 137/73 100 07/25/21 12:00 07/25/21 12:00 07/25/21 12:00 07/25/21 12:00 07/25/21 12:00 General: Other (Frail-looking) HEENT: Normocephalic Neck: Supple, JVD not distended Respiratory: Other (Symmetric chest expansion) Cardiovascular: No rubs, No murmurs Gastrointestinal: Soft and benign, Non-distended Musculoskeletal: No clubbing Integumentary: No warmth Neurological: Other (+myoclonic jerks) Lymphatics: No axilla or inguinal lymphadenopathy Urinary: Other (No bladder distention) External genitalia: Deferred Rectal: Deferred Laboratory Data (last 24 hrs) 07/24/21 19:04: PT 11.9, INR 1.03 07/24/21 19:04: WBC 6.90, Hgb 12.0 L, Hct 36.6 L, Plt Count 185 07/24/21 19:04: Sodium 141, Potassium 4.0, BUN 27 H, Creatinine 5.58 H*, Glucose 56 L, Magnesium 2.6 H, Total Bilirubin 0.3, AST 16, ALT 24, Alkaline Phosphatase 68 Conclusions/Impression: # ESRD on HD qMWF at [facility] EDW 77 kgs HD access LFA AVF HD tomorrow Nephrovite po daily Renal + DM diet Monitor renal panel # Myoclonus, Akathisia No clear evidence of extrapyramidal symptoms; +akathisia & bradykinesia but no rigidity or resting tremors ? seizure, on keppra Further eval/mngt per other services # ? UTI Abx per primary team F/u UCx & BCx # Htn Resume Carvedilol 12.5 mg po bid # Anemia Retacrit qMWF # Renal osteodystrophy Sevelamer po tidwm
--- NOTE | 2021-07-25 16:04 | RAD REPORT ---
EXAM DESCRIPTION: MRI - Brain Wo Cont - 07/25/2021 3:52 pm CLINICAL HISTORY: Body twitching, dysphagia COMPARISON: MRI BRAIN WITHOUT CONTRAST dated 10/08/2014; Head Brain Wo Cont dated 07/24/2021 TECHNIQUE: Sagittal T1-weighted images were obtained along with PD/heavily T2-weighted and T2-FLAIR images. Axial DWI and ADC mapping sequences were also obtained along with coronal heavily T2-weighted images were obtained. FINDINGS: No intracranial hemorrhage, mass or acute infarction. There is no edema or shift of midlin e structures. No extra-axial fluid collections. Signal voids are seen as a normal finding in the deyanira r intracranial vessels. Moderate chronic small vessel ischemic changes. Cerebral atrophy which is age advanced. Atrophic globes bilaterally. Mastoid air cells and paranasal sinuses are clear. IMPRESSION: No acute intracranial abnormality. Specifically, no evidence of acute infarct. Age advan arlet cerebral atrophy.
--- NOTE | 2021-07-25 16:42 | P.PN ---
Subjective Date of Service: 07/25/21 Chief Complaint: UTI, twitching Patient having problem with speech. Nursing staff also reports dysphagia to liquids. Patient is blind. Patient hospitalized due to uncontrolled twitching. Physical Examination - Vital Signs Temperature: 97.5 F Blood Pressure: 161/85 Pulse: 80 Respirations: 18 Pulse Ox (%): 98 - Physical Exam General: Confused, Other (Awake) HEENT: PERRLA, Mucous membr. moist/pink, EOMI, Sclerae nonicteric Neck: Supple, JVD not distended Respiratory: Clear to auscultation bilaterally, Normal air movement Cardiovascular: No edema, Regular rate/rhythm, Normal S1 S2 Gastrointestinal: Normal bowel sounds, Soft and benign, No tenderness Musculoskeletal: No swelling Neurological: Normal strength at 5/5 x4 extr - Studies Laboratory Data (last 24 hrs) 07/25/21 04:00: Sodium 141, Potassium 4.6, BUN 32 H, Creatinine 6.86 H* D, Glucose 79, Phosphorus 4.5, Magnesium 2.4, Total Bilirubin 0.3, AST 12 L, ALT 16, Alkaline Phosphatase 64, Triglycerides 103, Cholesterol 78, HDL Cholesterol 41, Cholesterol/HDL Ratio 1.90 07/25/21 04:00: WBC 5.80 D, Hgb 11.7 L, Hct 35.4 L, Plt Count 154 07/24/21 19:04: PT 11.9, INR 1.03 07/24/21 19:04: WBC 6.90, Hgb 12.0 L, Hct 36.6 L, Plt Count 185 07/24/21 19:04: Sodium 141, Potassium 4.0, BUN 27 H, Creatinine 5.58 H*, Glucose 56 L, Magnesium 2.6 H, Total Bilirubin 0.3, AST 16, ALT 24, Alkaline Phosphatase 68 Assessment And Plan - Current Problems (Diagnosis) (1) Twitching Current Visit: Yes Status: Acute (2) UTI (urinary tract infection) Current Visit: Yes Status: Acute Qualifiers: Urinary tract infection type: site unspecified Hematuria presence: with hematuria Qualified Code(s): N39.0 - Urinary tract infection, site not specified; R31.9 - Hematuria, unspecified (3) Blind Onset Date: 08/09/14 Current Visit: No Status: Chronic (4) ESRD (end stage renal disease) Onset Date: 08/09/14 Current Visit: No Status: Chronic - Plan Not sure what is causing the body twitching or dysphagia. MRI of the brain is negative for acute stroke. Possible focal seizures with UTI lowering threshold for seizures. Continue antibiotics. Follow urine culture. Neurology consult EEG. Nephrology input appreciated Hemodialysis per nephrology. Patient seen by speech. Diet recommendation per speech therapy. PT to evaluate.
--- NOTE | 2021-07-25 16:53 | EKG ---
Test Date: 2021-07-24 Test Time: 18:17:02 Fitter Up: AISHA MEASUREMENT RESULTS: Intervals: Rate: 81 ND: 196 QRSD: 84 QT: 416 QTc: 483 [place]: P: 74 ND: 196 QRS: -3 T: 93 INTERPRETIVE STATEMENTS: Sinus rhythm with occasional premature ventricular complexes Nonspecific ST and T wave abnormality Abnormal ECG Compared to ECG 07/24/2021 18:16:04 Ventricular premature complex(es) now present ST (T wave) deviation now present Atrial premature complex(es) no longer present Aberrant conduction of supraventricular beat(s) no longer present T-wave abnormality no longer present Electronically Signed On 07-25-21 16:51:12 RN PSYCHIATRIC by Aime Moreno
--- NOTE | 2021-07-25 16:53 | EKG ---
Test Date: 2021-07-24 Test Time: 18:16:04 Sole Scraper: AISHA MEASUREMENT RESULTS: Intervals: Rate: 78 WV: 190 QRSD: 88 QT: 404 QTc: 460 [place]: P: 25 WV: 190 QRS: 0 T: 86 INTERPRETIVE STATEMENTS: Sinus rhythm with premature atrial complexes with aberrant conduction Nonspecific T wave abnormality Abnormal ECG Compared to ECG 10/22/2014 15:22:50 Atrial premature complex(es) now present Aberrant conduction of supraventricular beat(s) now present T-wave abnormality now present Electronically Signed On 07-25-21 16:51:13 ARSON INVESTIGATOR by Aime Moreno
[2021-07-25] MEDS ORDERED: CEFTRIAXONE 1000 MG/VIAL ONE (21:10)
[2021-07-25] MEDS: levETIRAcetam 500 MG TAB PO SCH (21:40)
[2021-07-25] MEDS: CEFTRIAXONE 1,000 MG in NA CHLORIDE 0.9% 50 ML IVPB SCH (21:41)
[2021-07-25] MEDS ORDERED: NA CHLORIDE 0.9% 50 ML ONE (21:41)
[2021-07-25] MEDS: carvediloL 12.5 MG TAB PO SCH (22:17)
[2021-07-26] MEDS: HEPARIN 5000 UNIT/ML 1 ML VIAL SQ SCH ×3 (00:25→17:00)
[2021-07-26 03:48] LABS: Absolute Lymphocytes (CBC) 0.9 K/uL (0.7-4.9); Basophils % 0.3 % (0-1.3); Hematocrit 32.9 % (39.6-49.0); MPV 7.8 fL (7.6-11.3); RBC Red Blood Cell Count 3.44 M/uL (4.33-5.43)
[2021-07-26 04:19] LABS: Potassium 5.3 mmol/L (3.5-5.1)
[2021-07-26] MEDS: carvediloL 12.5 MG TAB PO SCH ×2 (06:31→20:35)
[2021-07-26] MEDS: INSULIN -REGULAR HUMAN 50 UNIT/0.5 ML ML SQ SCH ×4 (07:30→20:37)
[2021-07-26] MEDS ORDERED: CEFTRIAXONE 1000 MG/VIAL ONE (08:22)
[2021-07-26] MEDS ORDERED: NA CHLORIDE 0.9% 50 ML ONE (08:25)
[2021-07-26] MEDS: SEVELAMER CARBONATE 800 MG TABLET PO SCH ×3 (08:57→17:00)
[2021-07-26] MEDS: levETIRAcetam 500 MG TAB PO SCH ×2 (08:57→20:36)
[2021-07-26] MEDS: MULTIVITAMINS,THERAPEUT 1 TAB PO SCH (08:58)
[2021-07-26] MEDS: CEFTRIAXONE 1,000 MG in NA CHLORIDE 0.9% 50 ML IVPB SCH (08:59)
[2021-07-26] MEDS: EPOETIN 4,000 UNIT/ML VIAL SQ SCH ×2 (09:00→22:14)
--- NOTE | 2021-07-26 14:55 | P.PN ---
Subjective Date of Service: 07/26/21 Chief Complaint: UTI, myoclonic jerks Subjective: Other (Pt noted to have intermittent myoclonus.) Physical Examination - Vital Signs Temperature: 97.1 F Blood Pressure: 106/59 Pulse: 69 Respirations: 16 Pulse Ox (%): 95 - Physical Exam General: Other (Appears chronically ill) HEENT: Atraumatic, Normocephalic Neck: Supple, JVD not distended Respiratory: Diminished Cardiovascular: No rubs, No murmurs Gastrointestinal: Soft and benign, Non-distended Integumentary: No warmth Neurological: Other (Myoclonus) Urinary: Other (No bladder distention) External genitalia: Deferred Rectal: Deferred - Studies Microbiology Data (last 24 hrs): 07/24/21 20:58 Clean Catch Urine [place] Count - Final No growth. 07/24/21 20:58 Clean Catch Urine - Final No growth. Assessment And Plan - Plan # ESRD on HD qMWF at [facility] EDW 77 kgs HD access LFA AVF HD today HD tomorrow to see if this helps lessen myoclonus Nephrovite po daily Renal + DM diet Monitor renal panel # Myoclonus, Akathisia No clear evidence of extrapyramidal symptoms; +akathisia & bradykinesia but no rigidity or resting tremors ? seizure, on keppra Will do extra HD treatment tomorrow to see if lessening urea helps lessen myoclonus Further eval/mngt per other services # ? UTI Abx per primary team UCx & BCx NGTD # Htn Cont Carvedilol 12.5 mg po bid # Anemia Retacrit qMWF # Renal osteodystrophy Sevelamer po tidwm
--- NOTE | 2021-07-26 15:30 | P.PN ---
Subjective Date of Service: 07/26/21 Chief Complaint: UTI, myoclonic jerks Patient still having problem with speech. He is mumbling words and I cannot make any sense from them. He is tolerating pured diet. Physical Examination - Vital Signs Temperature: 97.1 F Blood Pressure: 106/59 Pulse: 69 Respirations: 16 Pulse Ox (%): 95 - Physical Exam General: Confused, Other (Awake) HEENT: PERRLA, Mucous membr. moist/pink, Sclerae nonicteric Neck: JVD not distended Respiratory: Clear to auscultation bilaterally, Normal air movement Cardiovascular: No edema, Regular rate/rhythm, Normal S1 S2 Gastrointestinal: Normal bowel sounds, Soft and benign, Non-distended, No tenderness Musculoskeletal: No swelling, Other (Left upper extremity AV fistula) Integumentary: No rashes Neurological: Other (No focal motor deficit) - Studies Microbiology Data (last 24 hrs): 07/24/21 20:58 Clean Catch Urine [place] Count - Final No growth. 07/24/21 20:58 Clean Catch Urine - Final No growth. Assessment And Plan - Current Problems (Diagnosis) (1) Twitching Current Visit: Yes Status: Acute (2) UTI (urinary tract infection) Current Visit: Yes Status: Acute Qualifiers: Urinary tract infection type: site unspecified Hematuria presence: with hematuria Qualified Code(s): N39.0 - Urinary tract infection, site not specified; R31.9 - Hematuria, unspecified (3) Blind Onset Date: 08/09/14 Current Visit: No Status: Chronic (4) ESRD (end stage renal disease) Onset Date: 08/09/14 Current Visit: No Status: Chronic - Plan Case discussed with daughter who states that they have noticed a pattern where this neurologic symptoms occur with hyperkalemia and this has been treated in the past with [id number]-[id number] dialysis. Case discussed with Dr. Blankenship. Metabolic etiology suspected. Dr. Blankenship agree with Debra for now and EEG. MRI of the brain is negative for acute stroke. Possible focal seizures with UTI lowering threshold for seizures. Urine culture: No growth. Continue antibiotics. Follow urine culture. Neurology consult EEG. Nephrology is following Hemodialysis per nephrology. Patient seen by speech. Pured diet recommended by speech. Continue PT Discharge Plan: LTAC
[2021-07-27] MEDS: HEPARIN 5000 UNIT/ML 1 ML VIAL SQ SCH ×3 (01:00→17:57)
[2021-07-27 03:56] LABS: Absolute Lymphocytes (CBC) 0.7 K/uL (0.7-4.9); Basophils % 0.3 % (0-1.3); Hematocrit 34.1 % (39.6-49.0); Lymphocytes % 16.2 % (15.3-44.8); MPV 7.6 fL (7.6-11.3); RBC Red Blood Cell Count 3.55 M/uL (4.33-5.43)
[2021-07-27 04:31] LABS: Albumin 3.1 g/dL (3.4-5.0); Bilirubin Total 0.4 mg/dL (0.2-1.0); Potassium 4.4 mmol/L (3.5-5.1); Protein, Total 7.1 g/dL (6.4-8.2)
--- NOTE | 2021-07-27 06:41 | EEG ---
CHART: [id number] TEST ID#: [id number] DATE OF STUDY: 07/26/2021 THE EEG WAS RECORDED PORTABLE IN THE PATIENT'S ROOM ON A 17 CHANNEL MACHINE. ELECTRODES WERE APPLIED IN THE USUAL MANNER USING THE INTERNATIONAL 10-20 SYSTEM. THE WAKING BACKGROUND RHYTHM IN THIS RECORD CONSISTS OF FAIRLY WELL DEVELOPED AND FAIRLY WELL ORGANIZED WAVES OF 8.5 HZ., MAXIMAL IN THE POSTERIOR HEAD REGIONS WHICH ATTENUATE NORMALLY WITH EYE OPENING. THERE ARE NO FOCAL OR LATERALIZING FEATURES. NO EPILEPTIFORM ACTIVITY APPEARS. SLEEP OCCURRED NATURALLY. IN ADDITION NORMAL SLEEP PATTERNS ARE PRESENT. HYPERVENTILATION WAS NOT PERFORMED. PHOTIC STIMULATION PRODUCED NO DRIVING BILATERALLY. IMPRESSION: NORMAL EEG FOR THE AGE OF THE PATIENT IN [place], DROWSINESS AND SLEEP.
[2021-07-27] MEDS: INSULIN -REGULAR HUMAN 50 UNIT/0.5 ML ML SQ SCH ×4 (07:30→19:43)
[2021-07-27] MEDS: carvediloL 12.5 MG TAB PO SCH ×2 (08:09→19:30)
[2021-07-27] MEDS: SEVELAMER CARBONATE 800 MG TABLET PO SCH ×3 (08:09→17:56)
[2021-07-27] MEDS: levETIRAcetam 500 MG TAB PO SCH ×2 (08:09→19:31)
[2021-07-27] MEDS: MULTIVITAMINS,THERAPEUT 1 TAB PO SCH (08:10)
[2021-07-27] MEDS ORDERED: CEFTRIAXONE 1000 MG/VIAL ONE (08:11)
[2021-07-27] MEDS: CEFTRIAXONE 1,000 MG in NA CHLORIDE 0.9% 50 ML IVPB SCH (08:13)
[2021-07-27] MEDS: NA CHLORIDE 0.9% 50 ML ONE (08:19)
[2021-07-27 09:04] VITALS: O2SAT 95
--- NOTE | 2021-07-27 11:16 | PN ---
Date of Progress Note: 07/27/2021 Subjective: The patient was admitted to the hospital with fall. The patient had dialysis yesterday, scheduled for dialysis today. Feeling well. Physical Examination: Vital Signs: Blood pressure 160/76, pulse of 70. Chest: Clear to auscultation. Heart: S1, S2. Regular. Abdomen: Soft, nontender. Extremity: No edema. Neuro: Has resting tremor. Laboratory Data: Sodium 141, potassium 4.4, bicarb 31, BUN 27, creatinine 6.4, calcium 8.4. Current Medications: The patient on include albuterol, ceftriaxone, Epogen, carvedilol 12.5 b.i.d., Keppra, Zofran, Renvela. Assessment And Plan: 1.End-stage renal disease with questionable myoclonic movement. The patient is scheduled for extra dialysis today. We will follow up. The patient cleared from the Renal standpoint for discharge plan samara after. 2.Hypertension, controlled, optimal. Continue current medications. 3.Myoclonic movement, questionable, unknown etiology, questionable if it is secondary to uremia. We will do extra treatment today and we will follow up the patient. 4.Secondary hyperparathyroidism. Continue binder. 5.Anemia of chronic kidney disease. No need for ASAF currently. JUSTIN Voice ID: [id number] Report ID: [id number]
[2021-07-27 12:04] VITALS: TEMP 97.8
--- NOTE | 2021-07-27 12:16 | P.DS ---
Admission Date: 07/25/21 Discharge Date: 07/27/21 Disposition: TRANSFER TO [facility] Discharge Condition: FAIR Reason for Admission: UTI, myoclonic jerks - Problems (1) Twitching Current Visit: Yes Status: Acute (2) UTI (urinary tract infection) Current Visit: Yes Status: Acute Qualifiers: Urinary tract infection type: site unspecified Hematuria presence: with hematuria Qualified Code(s): N39.0 - Urinary tract infection, site not specified; R31.9 - Hematuria, unspecified (3) Blind Onset Date: 08/09/14 Current Visit: No Status: Chronic (4) ESRD (end stage renal disease) Onset Date: 08/09/14 Current Visit: No Status: Chronic Brief History of Present Illness: Mr. Rojas is a 71 yo male with DM and ESRD on HD MWF who presents with body twitching and difficulty speaking. According to family, the twitching has been related to sepsis, UTI and hyperkalemia. UA positive for RBCs, WBCs, and leukocyte esterase. He went to dialysis on the day of admission and 1.5L removed. He had a fall 1 week ago with bruising to left side of his face, CT head without acute findings. Procal 0.06. Patient admitted for further management. Hospital Course: Patient admitted to the medical floor and treated with antibiotics for possible UTI. He was mumbling with words, speaking in complete sentences and twitching in the face occasionally. Case discussed with daughter who stated that they have noticed a pattern where this neurologic symptoms occur with hyperkalemia and this has been treated in the past with [id number]-mu-aaxn dialysis. Case discussed with Dr. Blankenship. Metabolic etiology suspected. Patient started on Keppra. EEG done showed no spikes to suggest seizures. MRI of the brain is negative for acute stroke. Urine culture: No growth. Patient received hemodialysis yesterday and today. Patient neurologic symptoms significantly improved. He initially had trouble eating solid food and thin liquids. Patient tolerating solid diet today. He is speaking in complete sentences and answer appropriately to questions. His symptoms have significantly improved. Patient deemed stable for discharge. Vital Signs/Physical Exam: Temp Pulse Resp BP Pulse Ox 97.8 F 69 14 166/79 H 96 07/27/21 12:00 07/27/21 12:00 07/27/21 12:00 07/27/21 12:00 07/27/21 12:00 General: In no apparent distress, Oriented x3 HEENT: PERRLA, Mucous membr. moist/pink Neck: JVD not distended Respiratory: Clear to auscultation bilaterally, Normal air movement, Friction rub Cardiovascular: Regular rate/rhythm, Normal S1 S2 Gastrointestinal: Soft and benign, Non-distended, No tenderness Musculoskeletal: No swelling, No tenderness Integumentary: No rashes, No cyanosis Neurological: Normal strength at 5/5 x4 extr Laboratory Data at Discharge: WBC 4.00 K/uL (4.3-10.9) L D 07/27/21 03:12 Hgb 11.3 g/dL (13.6-17.9) L 07/27/21 03:12 Hct 34.1 % (39.6-49.0) L 07/27/21 03:12 Plt Count 157 K/uL (152-406) 07/27/21 03:12 PT 11.9 SECONDS (9.5-12.5) 07/24/21 19:04 INR 1.03 07/24/21 19:04 Sodium 141 mmol/L (136-145) 07/27/21 03:12 Potassium 4.4 mmol/L (3.5-5.1) 07/27/21 03:12 BUN 27 mg/dL (7-18) H D 07/27/21 03:12 Creatinine 6.43 mg/dL (0.55-1.3) H* D 07/27/21 03:12 Glucose 116 mg/dL (74-106) H 07/27/21 03:12 Phosphorus 4.5 mg/dL (2.5-4.9) 07/25/21 04:00 Magnesium 2.4 mg/dL (1.8-2.4) 07/25/21 04:00 Total Bilirubin 0.4 mg/dL (0.2-1.0) 07/27/21 03:12 AST 10 U/L (15-37) L 07/27/21 03:12 ALT 17 U/L (12-78) 07/27/21 03:12 Alkaline Phosphatase 70 U/L (45-117) 07/27/21 03:12 Triglycerides 103 mg/dL (<150) 07/25/21 04:00 Cholesterol 78 mg/dL (<200) 07/25/21 04:00 HDL Cholesterol 41 mg/dL (40-60) 07/25/21 04:00 Cholesterol/HDL Ratio 1.90 07/25/21 04:00 Home Medications: carvediloL [Coreg*] 12.5 mg PO BID 02/17/15 Acetaminophen [Tylenol] 650 mg PO Q6H PRN 07/25/21 Ascorbic Acid [Vitamin C] 500 mg PO DAILY 07/25/21 Aspirin [Aspirin EC] 81 mg PO DAILY 07/25/21 Atorvastatin Calcium [Lipitor*] 20 mg PO DAILY 07/25/21 Bismuth Subsalicylate [Maalox] 15 ml PO BID PRN 07/25/21 Clopidogrel Bisulfate [Plavix*] 75 mg PO DAILY 07/25/21 Dextran 70/Hypromellose [Genteal Tears 0.1%-0.3% Drop] 2 drops EACH EYE Q6H PRN 07/25/21 Famotidine [Pepcid*] 20 mg PO DAILY 07/25/21 Fluoxetine HCl [Prozac] 20 mg PO DAILY 07/25/21 Furosemide [Lasix*] 40 mg PO DAILY 07/25/21 Insulin Detemir [Levemir Flextouch] 14 units SQ DAILY 07/25/21 Lactulose 30 ml PO DAILY PRN 07/25/21 Sevelamer Carbonate [Renvela*] 800 mg PO TID 07/25/21 traMADol HCL [Ultram*] 50 mg PO Q6H PRN 07/25/21 Epoetin [Retacrit] 4,000 unit SQ 1X vial 07/27/21 Diet: Renal (Diabetic diet) Activity: Fall precautions Followup: Unknown,U [Primary Care Provider] - 1-2 Weeks Time spent managing pt's care (in minutes): 38
[2021-07-27] MEDS: EPOETIN 4,000 UNIT/ML VIAL SQ SCH (19:31)
[2021-07-27 21:28] VITALS: BP 160/72
== END 2021-07-27 23:21 | DRG 689 ==
LOC: ER 17:25 → ERHOLD 22:27 → OBSVTOIN 07-25 14:59 → 4TH 07-25 19:50
PROVIDERS: ADMIT Internal Medicine; ATTEND Internal Medicine
DX: N39.0 Urinary tract infection, site not specified (principal); N18.6 End stage renal disease; I12.0 Hypertensive chronic kidney disease with stage 5 chronic kidney disease or end stage renal disease; N25.81 Secondary hyperparathyroidism of renal origin; R25.3 Fasciculation; E11.22 Type 2 diabetes mellitus with diabetic chronic kidney disease; I25.10 Atherosclerotic heart disease of native coronary artery without angina pectoris; Z95.5 Presence of coronary angioplasty implant and graft; G25.3 Myoclonus; D63.1 Anemia in chronic kidney disease; H54.7 Unspecified visual loss; Z20.822 Contact with and (suspected) exposure to COVID-19
CPT/HCPCS: 36415; 70450; 70551; 71045; 80048; 80053; 80061; 80076; 81003; 81015; 82947; 83036; 83605; 83735; 83880; 84100; 84145; 84439; 84443; 84484; 85025; 85610; 87040; 87086; 87088; 90935; 92526; 92610; 93005; 94760; 95819; 96374; 97116; 97161; 97530; 99284; G0378; J1644; Q5105; U0003